=== PATIENT | male | born 1985 | race African-American/Black ===

== ENCOUNTER 2021-07-19 20:21 | Emergency (ER) | payer OTHER ==
[~2021-07-19] VITALS: Ht 185.4 cm; Wt 122.5 kg
== END 2021-07-20 00:04 | disposition home or self-care (01) ==
LOC: ER 20:21
DX: R50.9 Fever, unspecified (principal); R06.02 Shortness of breath; R11.0 Nausea; Z11.52 Encounter for screening for COVID-19